=== PATIENT | male | born 1985 ===

== ENCOUNTER 2023-07-28 18:49 | Inpatient (IN) | payer BC ==
[~2023-07-28] VITALS: Ht 193 cm; Wt 81.3 kg
[2023-07-28 21:38] VITALS: BP 124/88; PULSE 78; RESP 17; TEMP 98.7; O2SAT 98
[2023-07-28] MEDS ORDERED: loperamide 2mg capsule PO PRN (21:50)
[2023-07-28] MEDS ORDERED: mag hydrox/Alum hydrox/simeth 30ml oral suspension PO PRN (21:50)
[2023-07-28] MEDS ORDERED: acetaminophen 325mg tablet PO PRN (21:50)
[2023-07-28] MEDS ORDERED: NICOTINE POLACRILEX 2 MG LOZENGE BC PRN (21:50)
[2023-07-28] MEDS ORDERED: magnesium hydroxide 30ml (MOM) UD suspension PO PRN (21:50)
[2023-07-28] MEDS ORDERED: CYCL-1 PO (22:34)
[2023-07-28] MEDS ORDERED: FLUO40CA PO (22:34)
[2023-07-28] MEDS ORDERED: THIA100T66 PO (22:34)
[2023-07-28] MEDS ORDERED: LOSA50TA64 PO (22:34)
[2023-07-28] MEDS ORDERED: METO-411 PO (22:34)
[2023-07-28] MEDS ORDERED: ACAM333T8 PO (22:34)
[2023-07-28] MEDS ORDERED: PANT40TA54 PO (22:34)
[2023-07-28] MEDS ORDERED: [UNRECOGNIZED DRUG - CODE] PO (22:34)
[2023-07-28] MEDS ORDERED: NALT50TA PO (22:34)
[2023-07-28] MEDS ORDERED: FOLI1TAB27 PO (22:34)
[2023-07-28] MEDS ORDERED: CHLO25CA10 PO ×8 (22:34→23:49)
[2023-07-28] MEDS ORDERED: PYRI25TA4 PO (22:34)
[2023-07-28 23:30] VITALS: RESP 18; O2SAT 78; O2SAT 98
[2023-07-28] MEDS ORDERED: traZODone 50mg tablet PO SCH (23:55)
[2023-07-29] MEDS ORDERED: chlordiazePOXIDE 25mg capsule PO ONE (00:05)
[2023-07-29] MEDS ORDERED: cyclobenzaprine 10mg tablet PO PRN (01:40)
[2023-07-29] MEDS ORDERED: chlordiazePOXIDE 25mg capsule PO SCH (06:00)
[2023-07-29 07:00] VITALS: RESP 16; O2SAT 97
[2023-07-29] MEDS: thiamine 100mg tablet PO SCH (07:26)
[2023-07-29] MEDS: folic acid 1mg tablet PO SCH (07:26)
[2023-07-29] MEDS: pantoprazole 40mg Tablet.DR PO SCH (07:26)
[2023-07-29] MEDS: FLUoxetine 20mg capsule PO SCH (07:27)
[2023-07-29] MEDS: multivitamins, therapeutics tablet PO SCH (07:27)
[2023-07-29] MEDS: metoprolol succinate 25mg (24-HOUR) SR. Tablet PO SCH (07:27)
[2023-07-29] MEDS: acetaminophen 325mg tablet PO PRN ×2 (07:28→19:00)
[2023-07-29 08:00] VITALS: BP 115/80; PULSE 64; RESP 16; TEMP 97.7; O2SAT 97
[2023-07-29] MEDS ORDERED: acamprosate DR 333mg Tablet PO SCH (08:00)
[2023-07-29] MEDS ORDERED: nicotine 21mg patch - 24 hr TD SCH (08:00)
[2023-07-29] MEDS: pyridoxine 50mg tablet PO SCH (08:50)
[2023-07-29 10:23] LABS: CHOL/HDL RATIO 2.9 (0.00-4.99); CHOLESTEROL 143 MG/DL (0-200); HDL CHOLESTEROL 49 MG/DL (35-60); LDL CHOLESTEROL 79 MG/DL (50-100); TRIGLYCERIDES 75 MG/DL (20-135)
[2023-07-29 10:27] LABS: HEMOGLOBIN A1C 5.2 % (4.5-6.2)
[2023-07-29] MEDS: chlordiazePOXIDE 25mg capsule PO SCH ×2 (13:22→21:36)
[2023-07-29 18:50] VITALS: BP 108/81; PULSE 74; RESP 16; TEMP 97; O2SAT 97
[2023-07-29 19:00] VITALS: RESP 16; O2SAT 97
[2023-07-29 20:00] VITALS: BP 108/81; PULSE 74; RESP 16; TEMP 97; O2SAT 97
[2023-07-29] MEDS ORDERED: traZODone 50mg tablet PO SCH (20:00)
[2023-07-29] MEDS: acamprosate DR 333mg Tablet PO SCH (20:53)
[2023-07-29] MEDS ORDERED: naltrexone 50mg tablet PO SCH (21:00)
[2023-07-29] MEDS ORDERED: losartan 50mg tablet PO SCH (21:00)
[2023-07-29 22:48] VITALS: BP 104/73; PULSE 72; RESP 15; TEMP 97.6; O2SAT 97
[2023-07-30 02:46] VITALS: BP 110/76; PULSE 63; RESP 16; O2SAT 96
[2023-07-30] MEDS: chlordiazePOXIDE 25mg capsule PO SCH (05:50)
[2023-07-30 06:34] LABS: BASOPHILS # (AUTO) 0.1 X10'3 (0-0.2); BASOPHILS % (AUTO) 0.9 % (0-1); EOSINOPHILS # (AUTO) 0.3 X10'3 (0-0.9); EOSINOPHILS % (AUTO) 4.2 % (0-6); HEMATOCRIT 41.1 % (42.0-52.0); HEMOGLOBIN 14.4 g/dl (14.0-17.9); LYMPHOCYTES # (AUTO) 2.3 X10'3 (1.1-4.8); LYMPHOCYTES % (AUTO) 34.9 % (21-51); MEAN CORPUSCULAR HEMOGLOBIN 32.5 PG (27.0-31.0); MEAN CORPUSCULAR VOLUME 92.9 FL (78-98); MONOCYTES # (AUTO) 0.5 X10'3 (0-0.9); MONOCYTES % (AUTO) 8.2 % (2-12); NEUTROPHILS # (AUTO) 3.4 X10'3 (1.8-7.7); NEUTROPHILS % (AUTO) 51.8 % (42-75); PLATELET COUNT 160 X10'3 (140-440); RED BLOOD COUNT 4.43 X10'6 (4.70-6.10); RED CELL DISTRIBUTION WIDTH 12.9 % (11.5-14.5); WHITE BLOOD COUNT 6.6 X10'3 (4.5-11.0)
[2023-07-30 06:38] LABS: ALANINE AMINOTRANSFERASE 100 U/L (12-78); ALBUMIN 2.9 G/DL (3.4-5.0); ALBUMIN/GLOBULIN RATIO 0.8 (1.1-1.5); ALKALINE PHOSPHATASE 68 IU/L (46-116); ANION GAP 7 (8-16); ASPARTATE AMINO TRANSFERASE 27 U/L (10-37); BILIRUBIN,TOTAL 0.2 MG/DL (0.1-1.0); BLOOD UREA NITROGEN 13 MG/DL (7-18); BUN/CREATININE RATIO 23.6 (10.0-20.0); CALCIUM 8.7 MG/DL (8.5-10.1); CHLORIDE 104 MMOL/L (99-107); CREATININE 0.55 MG/DL (0.60-1.10); GLUCOSE 112 MG/DL (70-104); POTASSIUM 3.4 MMOL/L (3.5-5.1); SODIUM 138 MMOL/L (135-145); TOTAL CARBON DIOXIDE 27.4 MMOL/L (24-32); TOTAL PROTEIN 6.5 G/DL (6.4-8.2); eCRCL 211 ML/MIN; eGFR > 90 ML/MIN
[2023-07-30] MEDS: metoprolol succinate 25mg (24-HOUR) SR. Tablet PO SCH (07:41)
[2023-07-30] MEDS: multivitamins, therapeutics tablet PO SCH (07:43)
[2023-07-30] MEDS: thiamine 100mg tablet PO SCH (07:43)
[2023-07-30] MEDS: FLUoxetine 20mg capsule PO SCH (07:43)
[2023-07-30] MEDS: pyridoxine 50mg tablet PO SCH (07:44)
[2023-07-30] MEDS: acamprosate DR 333mg Tablet PO SCH (07:44)
[2023-07-30] MEDS: pantoprazole 40mg Tablet.DR PO SCH (07:44)
[2023-07-30] MEDS: folic acid 1mg tablet PO SCH (07:44)
[2023-07-30 08:06] VITALS: BP 110/79; PULSE 69; RESP 16; TEMP 97.2; O2SAT 97
[2023-07-30] MEDS ORDERED: CHLO25CA10 PO (14:01)
[2023-07-30] MEDS ORDERED: TRAZ-256 PO (14:01)
[2023-07-30] MEDS ORDERED: CYCL-1 PO (14:01)
[2023-07-30] MEDS ORDERED: thiamine tablet PO (14:01)
[2023-07-30] MEDS ORDERED: PYRI-4 PO (14:01)
[2023-07-30] MEDS ORDERED: FOLI1TAB27 PO (14:01)
[2023-07-30] MEDS ORDERED: chlordiazePOXIDE 25mg capsule PO SCH (18:00)
[2023-08-01] MEDS ORDERED: chlordiazePOXIDE 25mg capsule PO SCH (06:00)
[2023-08-01 13:42] LABS: HBSAG SCREEN Negative (Negative); HEP B CORE AB, IGM Negative (Negative); HEP B CORE AB, TOT Negative (Negative)
[2023-08-02 08:21] LABS: HEPATITIS C VIRUS ANTIBODY Non Reactive (Non Reactive)
[2023-08-03] MEDS ORDERED: chlordiazePOXIDE 25mg capsule PO SCH (06:00)
== END 2023-07-30 16:25 | disposition home or self-care (01) | DRG 885 ==
LOC: ADULT MH 21:41
PROVIDERS: ADMIT Psychiatry & Neurology Psychiatry; ATTEND Psychiatry & Neurology Psychiatry
DX: F33.2 Major depressive disorder, recurrent severe without psychotic features (principal); F10.239 Alcohol dependence with withdrawal, unspecified; F41.9 Anxiety disorder, unspecified; Z96.642 Presence of left artificial hip joint; G89.29 Other chronic pain; I10 Essential (primary) hypertension; I48.91 Unspecified atrial fibrillation; Z56.0 Unemployment, unspecified; Z79.899 Other long term (current) drug therapy; Z80.6 Family history of leukemia; Z82.3 Family history of stroke; Z82.49 Family history of ischemic heart disease and other diseases of the circulatory system; Z82.61 Family history of arthritis; Z85.6 Personal history of leukemia; Z86.73 Personal history of transient ischemic attack (TIA), and cerebral infarction without residual deficits; Z91.018 Allergy to other foods
CPT/HCPCS: 36415; 80053; 80061; 83036; 85025; 86704; 86705; 86803; 87081; 87340; 87522